=== PATIENT | male | born 2000 | race Asian ===

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

== ENCOUNTER 2023-05-19 23:13 | Emergency (ER) | payer BC, OTHER ==
[~2023-05-19] VITALS: Ht 175.3 cm; Wt 95.3 kg
[2023-05-19] MEDS ORDERED: ONDANSETRON 4 MG/2 ML VIAL IV ONE (23:45)
[2023-05-19] MEDS ORDERED: ONDANSETRON 4 MG/2 ML VIAL ONE (23:47)
[2023-05-20] MEDS ORDERED: IV NORMAL SALINE 1000 ML BAG IV ONE (00:15)
[2023-05-20 00:38] LABS: BASOPHILS % (AUTO) 0.1 % (0.0-2.0); HEMATOCRIT 43.6 % (36.7-47.1); HEMOGLOBIN 15.1 g/dL (12.5-16.3); LYMPHOCYTES # (AUTO) 0.7 K/uL (0.8-4.8); LYMPHOCYTES % (AUTO) 4.1 % (20.5-51.5); MEAN CORPUSCULAR HEMOGLOBIN 31.4 uug (23.8-33.4); MEAN CORPUSCULAR HGB CONC 35 g/dL (32.5-36.3); MEAN CORPUSCULAR VOLUME 90.7 fL (73.0-96.2); MONOCYTES # (AUTO) 0.6 K/uL (0.1-1.30); MONOCYTES % (AUTO) 3.4 % (0.0-11.0); NEUTROPHILS # (AUTO) 16.2 K/uL (1.8-8.9); NEUTROPHILS % (AUTO) 92.4 % (38.5-71.5); PLATELET COUNT (AUTO) 179 K/uL (152-348); RED CELL DISTRIBUTION WIDTH 12.7 % (12.1-16.2); WHITE BLOOD COUNT (AUTO) 17.6 K/uL (3.6-10.2)
[2023-05-20 00:40] LABS: ALANINE AMINOTRANSFERASE 45 U/L (16-63); ALBUMIN 3.6 g/dL (3.4-5.0); ALKALINE PHOSPHATASE 88 U/L (50-136); ASPARTATE AMINOTRANSFERASE 44 U/L (15-37); BILIRUBIN,DIRECT 0.2 mg/dL (0.0-0.2); BILIRUBIN,TOTAL 0.6 mg/dL (0.2-1.0); CALCIUM 8.5 mg/dL (8.5-10.1); CARBON DIOXIDE 24 mmol/L (21-32); CHLORIDE 105 mmol/L (98-107); GLUCOSE 107 mg/dL (74-106); SODIUM SERUM 141 mmol/L (136-145); UREA NITROGEN, BLOOD 6 mg/dL (7-18)
[2023-05-20 00:50] LABS: DIFFERENTIAL COMMENT 1
[2023-05-20 01:00] LABS: ETHANOL < 3 MG/DL (0-10)
[2023-05-20] MEDS ORDERED: ONDA4TAB11 PO (01:39)
[2023-05-20 02:41] VITALS: BP 111/49; O2SAT 97
== END 2023-05-20 02:49 | disposition home or self-care (01) ==
LOC: ER 23:19
DX: R11.2 Nausea with vomiting, unspecified (principal); R56.9 Unspecified convulsions
CPT/HCPCS: 36415; 70450; 99285; 96374; 80076; 80048; 85025; 96361; 80320; J2405; J7040; A4663; G0480

== ENCOUNTER 2024-11-14 19:46 | Emergency (ER) | payer BC, OTHER, MEDICAID ==
[~2024-11-14 19:46] MED LIST: LORA-259 PO; ONDA4TAB11 PO
== END 2024-11-14 21:03 | disposition left against medical advice (07) ==
LOC: ER 19:46
DX: M25.519 Pain in unspecified shoulder (principal); Z53.21 Procedure and treatment not carried out due to patient leaving prior to being seen by health care provider

== ENCOUNTER 2025-09-15 12:32 | Emergency (ER) | payer BC, OTHER ==
[~2025-09-15] VITALS: Ht 177.8 cm; Wt 113.4 kg
[~2025-09-15 12:32] MED LIST changes: +ONDA-243 PO; -ONDA4TAB11 PO
[2025-09-15] MEDS ORDERED: ONDANSETRON 4 MG/2 ML VIAL ONE (13:02)
[2025-09-15] MEDS ORDERED: HYDROMORPHONE 1 MG/1 ML DISP.SYRIN ONE ×2 (13:02→13:39)
[2025-09-15] MEDS: HYDROMORPHONE 1 MG/1 ML DISP.SYRIN IV ONE ×2 (13:06→13:48)
[2025-09-15] MEDS: ONDANSETRON 4 MG/2 ML VIAL IV ONE (13:06)
[2025-09-15] MEDS: PROPOFOL 200 MG/20 ML BOTTLE IV ONE ×2 (15:00→15:20)
[2025-09-15] MEDS ORDERED: PROPOFOL 200 MG/20 ML BOTTLE ONE (15:04)
[2025-09-15 15:20] VITALS: BP 126/88
[2025-09-15] MEDS ORDERED: HYDR-3980 PO (15:48)
[2025-09-15 16:49] VITALS: BP 126/84; TEMP 98.3; O2SAT 99
== END 2025-09-15 16:30 | disposition home or self-care (01) ==
LOC: ER 12:32
DX: S43.014A Anterior dislocation of right humerus, initial encounter (principal); G40.909 Epilepsy, unspecified, not intractable, without status epilepticus
CPT/HCPCS: 99285; 23650; 96374; 96375; 73020 ×2; 99152; 96376; J2405; J1171 ×2; A4606; A4663; G0500; J3490